=== PATIENT | male | born 1960 | race Caucasian/White ===

== ENCOUNTER 2016-10-12 08:29 | Inpatient (IN) | payer OTHER, BC ==
[~2016-10-12] VITALS: Ht 185.4 cm; Wt 97.8 kg
[~2016-10-12 08:29] MED LIST: FLONASE16 G1 BOTH NARES; GABAPENTIN300 MG PO; HYDROCHLOROTH12.5 M3 PO; HYDROCHLOROTHIA25 MG PO; LOSARTAN POTAS100 MG PO; MELOXICAM15 MG PO; METAMUCIL POWD798 GM PO; MORPHINE SULFAT15 M1 PO; OMEPRAZOLE20 M2 PO; PRAVASTATIN SOD40 MG PO; TESTOSTERO200 MG/12 IM; VERAPAMIL HCL120 M2 PO
[2016-10-12 12:01] VITALS: BP 130/76
[2016-10-12 19:25] VITALS: BP 141/68
[2016-10-13 00:07] VITALS: BP 136/66
[2016-10-13 03:35] VITALS: BP 122/61
[2016-10-13 05:24] LABS: MCV 89.4 FL (86-99)
[2016-10-13 05:53] LABS: ANION GAP 7 MEQ/L (2-14); CHLORIDE 103 MEQ/L (99-109); GFR ESTIMATE (CALCULATED) > 59 mL/min/; GLUCOSE 142 mg/dL (70-99); POTASSIUM 4.3 MEQ/L (3.7-5.4); SAMPLE HEMOLYSIS CHECK 0; SAMPLE ICTERIC CHECK 0; SAMPLE LIPEMIA CHECK 0; SODIUM 137 MEQ/L (136-147); UREA NITROGEN (BUN) 26 mg/dL (9-23)
[2016-10-13 08:00] VITALS: BP 119/60
[2016-10-13 12:06] VITALS: BP 140/63
[2016-10-13 16:31] VITALS: BP 125/55
[2016-10-13 20:50] VITALS: BP 135/74
[2016-10-14 00:12] VITALS: BP 135/74
[2016-10-14 05:28] LABS: HEMATOCRIT 39.5 % (38.0-50.0)
[2016-10-14 08:02] VITALS: BP 139/75
[2016-10-14] MEDS ORDERED: XARELTO10 MG PO (08:14)
[2016-10-14] MEDS ORDERED: OXYCODONE HCL5 MG PO (08:14)
[2016-10-14] MEDS ORDERED: CELECOXIB200 MG PO (08:14)
[2016-10-14 15:45] VITALS: BP 163/76
== END 2016-10-14 16:00 | DRG 470 ==
LOC: 2SOUTH 08:29 → 3EAST 11:26 → 2SOUTH 14:49 → 3EAST 19:34
PROVIDERS: Orthopaedic Surgery; Physician Assistant
PROC: 0SRD0J9 Replacement of Left Knee Joint with Synthetic Substitute, Cemented, Open Approach (ICD-10-PCS; principal; 2016-10-12)
DX: M17.32 Unilateral post-traumatic osteoarthritis, left knee (principal); I10 Essential (primary) hypertension; G47.33 Obstructive sleep apnea (adult) (pediatric); E78.2 Mixed hyperlipidemia; K21.9 Gastro-esophageal reflux disease without esophagitis; F32.9 Major depressive disorder, single episode, unspecified; Z96.651 Presence of right artificial knee joint; F17.210 Nicotine dependence, cigarettes, uncomplicated
CPT/HCPCS: 80048; 85014; 85018; 97530 GO; C1713; J0131; J0690; J1100; J1170; J1885; J2250; J2405; J2795; J3010; J7050; L1820